=== PATIENT | female | born 1945 | race Caucasian/White ===

== ENCOUNTER 2016-07-13 12:29 | Inpatient (IN) | payer MEDICARE, BC ==
[~2016-07-13 12:29] MED LIST: ACETAMINOPHEN325 MG PO; ADULT LOW DOSE81 MG PO; ALBUTEROL INH; ALBUTEROL SULF8.5 GM IH; ALBUTEROL0.83 MG/ML; ALBUTEROL0.83 MG/ML INH; ALBUTEROL2.5 MG/3 M NEB; ALDACTONE25 MG PO; ARICEPT5 MG; ASPIR 8181 MG; ASPIRIN; ASPIRIN81 M1 PO; ASPIRIN81 MG PO; ATARAX10 MG PO; ATENOLOL25 MG; ATENOLOL25 MG PO; AUGMENTIN875 MG PO; AVELOX400 MG PO; BL MAXEPA CAPSU1 CAP PO; BROVANA15 MCG/2 M IH; CALCIUM500 MG; CALTRATE 600 +1 EAC3 PO; CARBIDOPA-LE1 TAB.SA; CELEXA40 MG PO; CPAP; CULTURELLE1 EAC1 PO; DEPAKOTE D500 MG/TA1 PO; DEPAKOTE500 MG; DICYCLOMINE HCL10 MG; DIVALPROEX PO; DUONEB 2.5-0.5 M3 ML IH; ESTRACE0.5 MG; ESTRACE0.5 MG PO; ESTRADIOL0.5 M1 PO; EVOXAC30 MG; EXELON1 PATCH .1 TD; FISH OIL PO; FUROSEMIDE20 MG PO; FUROSEMIDE40 M2 PO; FUROSEMIDE40 MG PO; GABAPENTIN300 MG PO; GABAPENTIN600 MG PO; HYDROCODON-ACE1 EA16 PO; HYDROXYZINE HCL25 MG PO; IMITREX100 MG; K-DUR20 ME1 PO; K-DUR20 MEQ PO; LISINOPRIL5 M1 PO; LYRICA50 MG; MAGNESIUM250 MG; MAXALT10 M1 PO; MAXALT10 MG PO; MAXZIDE-25 MG1 UDTAB; MELOXICAM15 MG PO; MUCINEX600 MG PO; MULTIVITAMIN1 TAB PO; NEURONTIN300 MG PO; NEURONTIN600 M1 PO; NORCO 5/3251 TA1 PO; O2; OMEGA-31000 MG; OMEPRAZOLE20 M2 PO; PLAQUENIL200 MG PO; POTASSIUM CHLO20 ME3 PO; PREDNISONE20 MG PO; PREDNISONE5 M1 PO; PROAIR HFA8.5 GM INH; PROLIA60 MG/1 M1 SQ; PROVENTIL0.83 MG/ML; PROVENTIL17 GM IH; QUALAQUIN PO; QUININE PO; QUININE SULFAT324 MG; REMERON15 M1 PO; REMERON30 MG PO; SINEMET 25-1001 TA1 PO; SINEMET ER 25/11 TAB PO; SINGULAIR10 MG; SINGULAIR10 MG PO; SPIRIVA18 MCG; SPIRIVA18 MCG IH; SPIRONOLACTONE25 M1 PO; SYMBICORT 160-4.6 GM IH; SYMBICORT INH; TIZANIDINE HCL2 MG; TOPAMAX50 MG; TOPIRAMATE50 MG PO; TRAMADOL HCL50 MG; VITAMIN D50000 UNIT PO; WELLBUTRIN XL150 M1 PO; ZITHROMAX250 M1 PO; [UNRECOGNIZED DRUG - OTHER] MC
[2016-07-13] MEDS ORDERED: INCRUSE ELLI62.5 MCG INH (13:05)
[2016-07-13] MEDS ORDERED: VOLTAREN100 G1 TOP (13:06)
[2016-07-13] MEDS ORDERED: HYDROXYZINE HCL25 M1 PO (13:07)
[2016-07-13] MEDS ORDERED: FLUOCINONIDE TOP (13:32)
[2016-07-13] MEDS ORDERED: SARNA TOP (13:34)
[2016-07-13] MEDS ORDERED: TRIAMCINOLONE A15 G2 TP (13:35)
[2016-07-13] MEDS ORDERED: NORCO 7.5-3251 EACH PO (13:41)
[2016-07-13 16:10] LABS: ABG CO2 ARTERIAL 26 mmol/L (21-27); ARTERIAL BLD GAS O2 SATURATION 96 % (95-98); ARTERIAL BLOOD GAS PCO2 39 mmHg (32-45); ARTERIAL PO2 75 mmHg (70-100); BICARBONATE 24 mmol/L (21-28); BLOOD GAS BASE EXCESS 0 mM/L (-/+3); PH 7.41 Units (7.35-7.45)
[2016-07-13 17:05] LABS: PROCALCITONIN 0.17 ng/ml (0.05-0.09)
[2016-07-14 05:08] LABS: HCT-HEMATOCRIT 35.4 % (34.0-49.0); HGB-HEMOGLOBIN 10.8 gm/dl (12.0-15.5); IMMATURE GRANULOCYTES ABSOLUTE 0.03 tho/cmm (0-0.03); IMMATURE GRANULOCYTES PERCENT 0.3 % (0-0.3); LYMPH % 5.8 % (20-45); LYMPH ABSOLUTE COUNT 0.6 tho/cmm (0.8-4.5); MCH (MEAN CORPUSCULAR HGB) 28.1 pg (28.0-32.0); MCHC MEAN CORPUSCULAR HGB CONC 30.5 % (32.0-36.0); MCV (MEAN CELL VOLUME) 91.9 fl (82.0-96.0); MEAN PLATELET VOLUME 9.8 cmc (9.4-12.4); MONOCYTE ABSOLUTE COUNT 0.3 tho/cmm (0.0-1.2); NEUTROPHILS % 90.9 % (40-80); PLATELET COUNT 184 tho/cmm (150-450); RED BLOOD COUNT 3.85 mil/cmm (4.00-5.20); RED CELL DISTRIBUTION WIDTH 14.7 % (12.4-16.4)
[2016-07-14 05:22] LABS: ANION GAP 13 mmol/L (0-20); BLOOD UREA NITROGEN 25 mg/dl (6-24); CALCIUM 7.7 mg/dl (8.5-10.5); CARBON DIOXIDE-VENOUS 25 mmol/L (22-32); CHLORIDE 110 mmol/l (96-110); CREATININE 1.12 mg/dl (0.50-1.10); GLUCOSE 151 mg/dL (70-110); SODIUM 144 mmol/L (135-145); eGFR VALUE FOR BLACK 57 mL/Min
[2016-07-14 05:46] LABS: PROCALCITONIN 0.13 ng/ml (0.05-0.09)
[2016-07-14 07:14] LABS: ARTERIAL BLD GAS O2 SATURATION 96 % (95-98); ARTERIAL BLOOD GAS PCO2 36 mmHg (32-45); ARTERIAL PO2 76 mmHg (70-100); BICARBONATE 20 mmol/L (21-28); BLOOD GAS BASE EXCESS -4 mM/L (-/+3); PH 7.36 Units (7.35-7.45)
[2016-07-14 07:15] LABS: ABG CO2 ARTERIAL 21 mmol/L (21-27)
[2016-07-15 04:24] LABS: HGB-HEMOGLOBIN 9.9 gm/dl (12.0-15.5); PLATELET COUNT 206 tho/cmm (150-450)
[2016-07-16 04:34] LABS: URINE BILIRUBIN NEGATIVE (NEG); URINE BLOOD MODERATE (NEG); URINE GLUCOSE (UA) NEGATIVE (NEG); URINE KETONE NEGATIVE (NEG); URINE LEUKOCYTE ESTERASE POSITIVE (NEG); URINE NITRITE NEGATIVE (NEG); URINE PROTEIN MODERATE (NEG); URINE SPECIFIC GRAVITY 1.015 (1.003-1.030)
[2016-07-16 04:38] LABS: URINE APPEARANCE SL CLOUDY; URINE COLOR YELLOW
[2016-07-16 04:42] LABS: URINE EPITHELIAL CELLS 0-5 /[HPF] (0-10); URINE WBC 0-5 /[HPF] (0-5)
[2016-07-16] MEDS ORDERED: LEVAQUIN750 M1 PO (11:57)
== END 2016-07-16 12:15 | DRG 871 ==
LOC: 5WE 12:29
PROVIDERS: Internal Medicine; Internal Medicine Pulmonary Disease; ADMIT Family Medicine
PROC: 5A09357 Assistance with Respiratory Ventilation, Less than 24 Consecutive Hours, Continuous Positive Airway Pressure (ICD-10-PCS; principal; 2016-07-13)
DX: A41.9 Sepsis, unspecified organism (principal); J18.9 Pneumonia, unspecified organism; J96.01 Acute respiratory failure with hypoxia; G93.40 Encephalopathy, unspecified; J44.0 Chronic obstructive pulmonary disease with (acute) lower respiratory infection; Z99.81 Dependence on supplemental oxygen; M06.9 Rheumatoid arthritis, unspecified; G47.33 Obstructive sleep apnea (adult) (pediatric); I27.2 Other secondary pulmonary hypertension; K21.9 Gastro-esophageal reflux disease without esophagitis; G20 Parkinson's disease; M81.0 Age-related osteoporosis without current pathological fracture; Z79.52 Long term (current) use of systemic steroids; Z79.82 Long term (current) use of aspirin; E66.9 Obesity, unspecified; I10 Essential (primary) hypertension; Z68.34 Body mass index [BMI] 34.0-34.9, adult
CPT/HCPCS: C9113; J1650; J1956; J2543; J2930; J3370; J7030